=== PATIENT | female | born 1990 | race Caucasian/White ===

== ENCOUNTER 2019-08-25 12:00 | Outpatient (CLI) | payer OTHER, SELFPAY | END 2019-08-25 12:01 | disposition home or self-care (01) | LOC: SLEEP 08-26 12:09 | PROVIDERS: Visit Provider Nurse Practitioner | DX: G47.09 Other insomnia (principal); G47.33 Obstructive sleep apnea (adult) (pediatric) | CPT/HCPCS: G0399 ==

== ENCOUNTER → 2019-09-27 07:47 | Outpatient (BNVA) | payer OTHER, SELFPAY | PROVIDERS: PCP Nurse Practitioner; Visit Provider Specialist | DX: G56.01 Carpal tunnel syndrome, right upper limb (principal); G54.0 Brachial plexus disorders | CPT/HCPCS: 95910; G0463 ==

== ENCOUNTER 2019-10-12 20:00 | Outpatient (CLI) | payer OTHER, SELFPAY | END 2019-10-12 20:01 | disposition home or self-care (01) | LOC: SLEEP 10-13 08:54 | PROVIDERS: PCP Nurse Practitioner; Visit Provider Nurse Practitioner | DX: G47.33 Obstructive sleep apnea (adult) (pediatric) (principal) | CPT/HCPCS: 95811 ==

== ENCOUNTER → 2020-07-18 10:35 | Outpatient (BNVA) | payer OTHER, SELFPAY | PROVIDERS: PCP Nurse Practitioner; Visit Provider Nurse Practitioner Women's Health | DX: Z01.419 Encounter for gynecological examination (general) (routine) without abnormal findings (principal) | CPT/HCPCS: 88175 ==

== ENCOUNTER → 2023-03-05 11:23 | Outpatient (BNVA) | payer OTHER, SELFPAY | PROVIDERS: PCP Nurse Practitioner; Visit Provider Nurse Practitioner Women's Health | DX: Z30.9 Encounter for contraceptive management, unspecified (principal); Z30.46 Encounter for surveillance of implantable subdermal contraceptive | CPT/HCPCS: 81025 ==

== ENCOUNTER → 2024-05-05 08:32 | Outpatient (BNVA) | payer OTHER, SELFPAY | PROVIDERS: PCP Nurse Practitioner; Visit Provider Podiatrist Foot & Ankle Surgery | DX: L60.3 Nail dystrophy (principal) | CPT/HCPCS: 99203 ==

== ENCOUNTER → 2024-06-02 08:46 | Outpatient (BNVA) | payer OTHER, SELFPAY | PROVIDERS: PCP Nurse Practitioner; Visit Provider Podiatrist Foot & Ankle Surgery | DX: L60.3 Nail dystrophy (principal) | CPT/HCPCS: 99213 ==

== ENCOUNTER 2024-06-17 10:27 | Outpatient (CLI) | payer OTHER, SELFPAY ==
--- NOTE | 2024-06-17 10:33 | US_ITS ---
WS: [id number] BILATERAL 3D TOMOSYNTHESIS DIGITAL DIAGNOSTIC MAMMOGRAPHY WITH CAD CLINICAL INFORMATION: N64.4 - Mastodynia HISTORY: LEFT breast pain COMPARISON: None. TECHNIQUE: Bilateral CC, MLO, and ML views. FINDINGS: Scattered fibroglandular densities bilaterally. No suspicious abnormalities deep to the area of concern LEFT breast. RIGHT breast is unremarkable. Ultrasound described below. ULTRASOUND BREAST LEFT TECHNIQUE: Ultrasound left breast focused area of concern. CLINICAL INFORMATION: N64.4 - Mastodynia FINDINGS: Ultrasound LEFT breast at the 1 o'clock position 7 cm from the nipple patient directed. No suspicious underlying cystic or solid lesions. No suspicious abnormalities. No lesions to target for biopsy. US/US breast LT limited* [id number] IMPRESSION: DENSITY: There are scattered areas of fibroglandular density. BI-RADS: 2 - Benign. FOLLOW UP: Age 38 Recommend annual screening mammography age 38
--- NOTE | 2024-06-17 10:45 | MM_ITS ---
WS: [id number] BILATERAL 3D TOMOSYNTHESIS DIGITAL DIAGNOSTIC MAMMOGRAPHY WITH CAD CLINICAL INFORMATION: N64.4 - Mastodynia HISTORY: LEFT breast pain COMPARISON: None. TECHNIQUE: Bilateral CC, MLO, and ML views. FINDINGS: Scattered fibroglandular densities bilaterally. No suspicious abnormalities deep to the area of concern LEFT breast. RIGHT breast is unremarkable. Ultrasound described below. ULTRASOUND BREAST LEFT TECHNIQUE: Ultrasound left breast focused area of concern. CLINICAL INFORMATION: N64.4 - Mastodynia FINDINGS: Ultrasound LEFT breast at the 1 o'clock position 7 cm from the nipple patient directed. No suspicious underlying cystic or solid lesions. No suspicious abnormalities. No lesions to target for biopsy. MM/MM diag BI tomosynthesis [id number] IMPRESSION: DENSITY: There are scattered areas of fibroglandular density. BI-RADS: 2 - Benign. FOLLOW UP: Age 38 Recommend annual screening mammography age 38
== END 2024-06-17 10:28 | disposition home or self-care (01) ==
PROVIDERS: PCP Nurse Practitioner; Visit Provider Nurse Practitioner
DX: N64.4 Mastodynia (principal); N60.19 Diffuse cystic mastopathy of unspecified breast; R92.323 Mammographic fibroglandular density, bilateral breasts
CPT/HCPCS: 76642; 77062; G0279

== ENCOUNTER → 2024-08-23 11:15 | Outpatient (BNVA) | payer OTHER, SELFPAY | PROVIDERS: PCP Nurse Practitioner; Visit Provider Nurse Practitioner Women's Health | DX: Z11.3 Encounter for screening for infections with a predominantly sexual mode of transmission (principal); Z01.419 Encounter for gynecological examination (general) (routine) without abnormal findings | CPT/HCPCS: 87491; 87591; 87624; 87661 ==